=== PATIENT | female | born 1980 | race Two or more races ===

== ENCOUNTER 2022-04-09 10:40 | Emergency (ER) | payer OTHER ==
[~2022-04-09] VITALS: Ht 162.6 cm; Wt 99.8 kg
[2022-04-09] MEDS ORDERED: LIDOCAINE 2%-EPI 1:100,000 30 ML VIAL ONE (11:31)
[2022-04-09 11:35] VITALS: BP 183/89
--- NOTE | 2022-04-09 12:18 | NUR ---
Patient discharged to home in stable condition. Written and verbal after care instructions given. Patient verbalizes understanding of instruction.
== END 2022-04-09 12:18 | disposition home or self-care (01) ==
LOC: ER 10:52
DX: L02.212 Cutaneous abscess of back [any part, except buttock and flank] (principal); I10 Essential (primary) hypertension
CPT/HCPCS: 99284; 10060; J3490